=== PATIENT | male | born 1990 | race Caucasian/White ===

== ENCOUNTER 2022-03-21 09:00 | Outpatient (RCR) | payer OTHER, SELFPAY | END 2022-04-10 13:08 | disposition home or self-care (01) | LOC: PT 09:00 | PROVIDERS: Visit Provider Orthopaedic Surgery | DX: S83.241A Other tear of medial meniscus, current injury, right knee, initial encounter (principal) | CPT/HCPCS: 97010; 97014; 97110; 97112; 97163; 97530; G0283 ==

== ENCOUNTER 2023-10-02 09:00 | Outpatient (RCR) | payer OTHER, SELFPAY | END 2023-10-09 08:40 | disposition home or self-care (01) | LOC: PT 09:00 | PROVIDERS: Visit Provider Nurse Practitioner Family | DX: M54.50 Low back pain, unspecified (principal) | CPT/HCPCS: 20560; 97010; 97014; 97110; 97140; 97163; 97530; G0283 ==